=== PATIENT | female | born 1975 | race American Indian/Alaskan Native ===

== ENCOUNTER 2018-09-21 05:32 | Outpatient (CLI) | payer MEDICAID | END 2018-09-21 05:33 | disposition home or self-care (01) | LOC: CARDIO 05:32 | DX: R07.9 Chest pain, unspecified (principal); R94.31 Abnormal electrocardiogram [ECG] [EKG]; I10 Essential (primary) hypertension; Z95.810 Presence of automatic (implantable) cardiac defibrillator ==